=== PATIENT | female | born 1955 | race Caucasian/White ===

== ENCOUNTER → 2019-08-16 | Outpatient (CLI) | payer BC ==
[~2019-08-16] VITALS: Ht 157 cm; Wt 110.0 kg
[~2019-08-16] MED LIST: CATHETER FLUSH 10 ML SYR IV PRN; REGADENOSON 0.4 MG/5 ML SYR (LEXISCAN) IV ONE; meTOprolol 5 MG/5 ML (LOPRESSOR) VIAL IV ONE; meTOprolol 5 MG/5 ML (LOPRESSOR) VIAL ONE
[2019-08-16 12:57] VITALS: BP 123/98
[2019-08-16 13:01] VITALS: BP 128/86
--- NOTE | 2019-08-16 21:40 | STRESS TEST ---
DATE OF SERVICE: 08/16/2019 LEXISCAN MYOVIEW STRESS TEST REFERRING PHYSICIAN: Dr. Garima Norris. Baseline heart rate is 95, baseline blood pressure 143/93. Baseline EKG is atrial fibrillation with no ischemic changes. In summary, the patient was injected with 10.05 mCi of technetium-99 Myoview and the resting images were obtained. Then, the patient received 0.4 mg of Lexiscan followed by 30.1 mCi of technetium-99 Myoview. Throughout the test, there were no EKG changes. The resting and stress images were reviewed and compared in the short axis, horizontal long axis, and vertical long axis views. Review of the images showed breast attenuation with decreased uptake involving the mid to apical anterior wall and anterior septum. SSS is 8, SDS 8, TID value 1.01. On the gated images, the left ventricle appeared to be normal size with normal contractility. Calculated ejection fraction is 63%, underlying atrial fibrillation affecting the gated images CONCLUSION: 1. The patient tolerated Lexiscan well. 2. Baseline atrial fibrillation persisted throughout test. 3. Nondiagnostic EKG changes with Lexiscan injection. 4. Breast attenuation with mild decreased uptake at the mid to apical anterior wall, anterior septum with mild reversibility. 5. Normal left ventricular size with normal contractility. Calculated ejection fraction 63%, gated images are unreliable due to underlying atrial fibrillation. Job ID: [id number] DocumentID: [id number] Dictated Date: 08/16/2019 16:20:40 [employer] Date: 08/16/2019 21:39:48 Dictated By: YRN MEDINA MD
== END ==
LOC: CARD 10:57
PROVIDERS: ATTEND Physician Assistant
DX: E78.2 Mixed hyperlipidemia (principal); E66.01 Morbid (severe) obesity due to excess calories; R00.2 Palpitations; Z82.3 Family history of stroke; Z82.49 Family history of ischemic heart disease and other diseases of the circulatory system
CPT/HCPCS: 78452; 93017; 93306

== ENCOUNTER 2019-08-23 10:33 | Day surgery (SDC) | payer BC ==
[~2019-08-23] VITALS: Ht 154.9 cm; Wt 109.0 kg
[2019-08-23] VITALS (9 sets, daily range): BP systolic 111–139; BP diastolic 74–93
[2019-08-23] MEDS ORDERED: HEParin (CATH LAB) 2,000 ML IV ONE (10:42)
[2019-08-23] MEDS ORDERED: NS IV 1000 ML 1,000 ML ONE (10:42)
[2019-08-23] MEDS ORDERED: LIDOCAINE 1% INJ 20 ML 20 ML VIAL ONE (10:42)
[2019-08-23] MEDS ORDERED: NS IV 1000 ML 1,000 ML IV SCH ×2 (10:45→15:24)
--- NOTE | 2019-08-23 11:01 | Diagnostic Imaging Report ---
INDICATION: Pre-heart catheterization. Time of exam 10:54 AM The heart size is normal. Lungs are clear. The pulmonary vascularity is normal. No infiltrate, effusion or pneumothorax is detected. IMPRESSION: No acute cardiopulmonary process is detected. Dictated by: Dictated on workstation # [id number]
[2019-08-23 11:07] LABS: HEMOGLOBIN 15.7 G/DL (11.5-16.0); MEAN PLATELET VOLUME 10.8 FL (7.4-10.4); RED CELL DISTRIBUTION WIDTH 13.4 % (10.0-14.5); WHITE BLOOD COUNT 10.7 10^3/uL (4.3-11.0)
[2019-08-23 11:08] LABS: BILIRUBIN,URINE NEGATIVE (NEGATIVE); CLARITY,URINE SLIGHTLY CLOUDY; COLOR,URINE YELLOW; GLUCOSE, URINE (UA) NEGATIVE (NEGATIVE); KETONES,URINE NEGATIVE (NEGATIVE); LEUKOCYTE ESTERASE ,URINE 1+ (NEGATIVE); NITRITE,URINE NEGATIVE (NEGATIVE); PH,URINE 6 (5-9); PROTEIN,URINE 2+ (NEGATIVE)
[2019-08-23 11:17] LABS: BACTERIA,URINE MODERATE /HPF
[2019-08-23] MEDS ORDERED: APIX5TAB PO (11:18)
[2019-08-23] MEDS ORDERED: LEVO125T PO (11:18)
[2019-08-23] MEDS ORDERED: SIMV20TA3 PO (11:18)
[2019-08-23] MEDS ORDERED: FURO-125 PO (11:18)
[2019-08-23] MEDS ORDERED: METO-370 PO (11:18)
[2019-08-23] MEDS ORDERED: TRIA1TAB3 PO (11:18)
[2019-08-23] MEDS ORDERED: METF-397 PO (11:18)
[2019-08-23] MEDS ORDERED: LISI-556 PO (11:18)
[2019-08-23] MEDS ORDERED: OMEG1CAP58 PO (11:18)
[2019-08-23 11:20] LABS: PROTHROMBIN TIME PATIENT 13.3 SEC (12.2-14.7)
[2019-08-23] MEDS ORDERED: ACET-77 PO (11:23)
[2019-08-23 11:26] LABS: ALBUMIN 4.3 GM/DL (3.2-4.5); BILIRUBIN,TOTAL 0.9 MG/DL (0.1-1.0); CREATININE SERUM 1.01 MG/DL (0.60-1.30); POTASSIUM 3.9 MMOL/L (3.6-5.0); TOTAL PROTEIN 8.2 GM/DL (6.4-8.2)
--- NOTE | 2019-08-23 11:29 | NUR ---
SPOKE WITH THE PT (SHE HAD HER HOME MEDS) TO COMPLETE THE MED REC. PT WAS ABLE TO TELL ME ALL HER MEDS WELL HOW/WHEN SHE TAKES THEM THE FOLLOWING ARE FILL DATES ACCORDING TO [facility]: 05-29-2019 METFORMIN #90/90DS 05-29-2019 SIMVASTATIN #90/90DS 07-26-2019 HCTZ/TRIAMTERENE #30/30DS 07-26-2019 LEVOTHYROXINE #30/ 30DS 07-26-2019 LISINOPRIL #30/30DS 08-11-2019 METOPROLOL #90/90DS 08-11-2019 ELIQUIS #60/30DS 08-18-2019 FUROSEMIDE #30/30DS OTC: FISH OIL APAP
[2019-08-23] MEDS ORDERED: MIDAZOLAM 5 MG/5 ML (VERSED) VIAL ONE (14:41)
[2019-08-23] MEDS ORDERED: HEParin 1000 UNIT/ML (10ML VIAL) FOR BOLUS ONE (14:41)
[2019-08-23] MEDS ORDERED: fentaNYL INJECTION 100 MCG/2 ML AMP ONE (14:41)
--- NOTE | 2019-08-23 15:24 | Cardiac Procedure Note-CS/ASA ---
Pre-Procedure Note Pre-Op Procedure Note H&P Reviewed The H&P was reviewed, patient examined and no changes noted. Date H&P Reviewed: Aug 23, 2019 Time H&P Reviewed: 14:00 Conscious Sedation Pre-Proced Time 14:00 ASA Score 3 For ASA 3 and 4: Consider anesthesia and medical clearance. Also, for patients with a history of failed moderate sedation consider anesthesia. Airway Lungs Heart ASA score ASA 1: a normal healthy patient ASA 2: a patient with a mild systemic disease (mid diabetes, controlled hypertension, obesity x ASA 3: a patient with a severe systemic disease that limits activity (angina, COPD, prior Myocardial infarction) ASA 4: a patient with an incapacitating disease that is a constant threat to life (CHF, renal failure) ASA 5: a moribund patient not expected to survive 24 hrs. (ruptured aneurysm) ASA 6: a declared brain- patient whose organs are being harvested. For emergent operations, add the letter E after the classification Mallampati Classification Grade 3 Sedation Plan Analgesia, Amnesia, Plan communicated to team members, Discussed options with patient/fam, Discussed risks with patient/fam The patient is an appropriate candidate to undergo the planned procedure, sedation, and anesthesia. The patient immediately re-assessed prior to indication. YRN MEDINA MD Aug 23, 2019 3:24 pm POS
--- NOTE | 2019-08-23 15:26 | Discharge Inst-Post CATH ---
Discharge Inst-CATH/EP Problems Reviewed?: Yes Post Cardiac Cath/EP D/C Inst Follow Up/Plan Hold metformin for [address] MEDINA's office in 2-4 weeks <b>CARDIAC CATH/EP PROCEDURE DISCHARGE INSTRUCTIONS</b> ACTIVITY * Go Home directly and rest. * Limit activity of the leg (or wrist if it was used) for 7 days including aerobics, swimming, jogging, bicycling, etc. * Restrict stair-climbing for 7 days if possible, if not, climb up with your non-cath leg, then bring together on the same step. * Avoid lifting, pushing, pulling or excessive movement of the affected extremity for 7 days. * Customary sexual activity may be resumed after 2 days-use caution not to use a position that strains or causes pain to the affected extremity. * No driving for 24 hours. * NO SMOKING. * Avoid straining for bowel movements for 7 days. * Gentle walking on level ground is allowed. * Returning to work will depend on the type of procedure and the results. Your doctor will discuss this with you. CALL YOUR DOCTOR FOR ANY OF THE FOLLOWING: *If bleeding from the puncture site occurs- Apply gentle pressure to site with clean cloth and call your doctor or EMS. * If a knot or lump forms under the skin, increases in size, or causes pain. * If bruising appears to be worsening or moving further down your leg instead of disappearing. * Temperature above 101 F. CARE OF YOUR GROIN INCISION; * Bruising or purple discoloration of the skin near the puncture site is common. * You may shower only, no bathtub bathing for 5 days. Be careful to avoid slipping as your leg may feel stiff. * If a closure device was used on your femoral artery, please see the attached guide regarding care of the device and your leg. * Leave dressing on FOR 24 hours. CARE OF YOUR WRIST INCISION; * Bruising or purple discoloration of the skin near the puncture site is common. * You may shower. * DO NOT submerge wrist. * Leave dressing on FOR 24 hours. YRN MEDINA MD Aug 23, 2019 3:26 pm POS
[2019-08-23] MEDS ORDERED: PATIENT MAY USE OWN MEDS, ALL PO SCH (15:30)
--- NOTE | 2019-08-23 15:32 | Cardiac Cath Report ---
Cardiac Cath Report Physician (s)/Thaw Shed Heater Tender (s) Physician YRN MEDINA MD Pre-Procedure Diagnosis Pre-Procedure Diagnosis: coronary artery disease Post-Procedure Note Procedure Start Date: Aug 23, 2019 Name of Procedure: Left heart catheterization Left ventriculogram Findings/Procedure Note PROCEDURE NOTE: 64-year-old lady with history of paroxysmal atrial fibrillation, hypertension hyperlipidemia, had an abnormal stress test, scheduled for cardiac catheterization possible PTCA. After explaining the procedure to the patient, all pros and cons were explained, all questions were answered. The patient signed the consent and then she was placed on the cardiac catheterization laboratory. Groin was prepped SL fashion local anesthesia was used. Sheath placed in the right femoral artery. Sera right and left catheter were used to access the coronary system. Sera right was advanced to the LV cavity, pressure was measured, LV gram was done. At the end of the procedure the sheath was removed. Closure device was used FINDINGS: Hemodynamics LV 118/12, end-diastolic pressure of 12 Aorta 112/65 mean of 86 ANATOMY: Left Main is free of obstructive disease Left Anterior Descending has mild disease nonobstructive disease Left Circumflex is dominant artery with 50-60 percent stenosis distally, nonobstructive disease Right Coronary Artery is nondominant artery small artery LV Gram was done showing normal left ventricular size and systolic pressure estimated ejection fraction 50 percent CONCLUSION: 1. [id number] coronary artery disease especially at the distal circumflex artery that is a dominant artery nonobstructive disease 2. Normal left ventricle size and systolic function estimated ejection fraction 50 percent DISCUSSION AND RECOMMENDATION: Continue with medical therapy, no intervention is recommended Anesthesia Type: Conscious Sedation Estimated blood loss (mL): 15 ml Contrast Amount: 35 ml Total Radiation Dose: 433 mGy Post-Procedure Diagnosis Post-operative diagnosis: Coronary artery disease Paroxysmal atrial fibrillation Hypertension Hyperlipidemia Diabetes mellitus YRN MEDINA MD Aug 23, 2019 3:32 pm POS
--- NOTE | 2019-08-23 19:15 | NUR ---
PT AMBULATED IN HALLS, PETRONA WELL
--- NOTE | 2019-08-23 20:03 | NUR ---
IV REMOVED AND PT HOME PER PRIVATE WEHICHLE. RIGHT GROIN D/I
== END 2019-08-23 19:51 | disposition home or self-care (01) ==
LOC: CATH 10:33 → CSD 15:55 → CATH 19:51
PROVIDERS: ATTEND Internal Medicine Cardiovascular Disease
DX: I25.10 Atherosclerotic heart disease of native coronary artery without angina pectoris (principal); I48.0 Paroxysmal atrial fibrillation; I10 Essential (primary) hypertension; I63.9 Cerebral infarction, unspecified; E78.5 Hyperlipidemia, unspecified; E11.9 Type 2 diabetes mellitus without complications; E66.01 Morbid (severe) obesity due to excess calories; Z68.42 Body mass index [BMI] 45.0-49.9, adult; Z88.8 Allergy status to other drugs, medicaments and biological substances; Z79.01 Long term (current) use of anticoagulants; Z79.899 Other long term (current) drug therapy; Z79.84 Long term (current) use of oral hypoglycemic drugs; Z87.891 Personal history of nicotine dependence; Z82.49 Family history of ischemic heart disease and other diseases of the circulatory system
CPT/HCPCS: 36415; 71045; 80053; 80061; 81000; 85027; 85610; 85730; 87081; 87088; 93458

== ENCOUNTER 2019-10-05 19:49 | Outpatient (CLI) | payer BC ==
[~2019-10-05 19:49] MED LIST changes: +ACET-77 PO; +APIX5TAB PO; -CATHETER FLUSH 10 ML SYR IV PRN; +FURO-125 PO; +LEVO125T PO; +LISI-556 PO; +METF-397 PO; +METO-370 PO; +OMEG1CAP58 PO; -REGADENOSON 0.4 MG/5 ML SYR (LEXISCAN) IV ONE; +SIMV20TA3 PO; +TRIA1TAB3 PO; -meTOprolol 5 MG/5 ML (LOPRESSOR) VIAL IV ONE; -meTOprolol 5 MG/5 ML (LOPRESSOR) VIAL ONE
== END 2019-10-06 06:23 | disposition home or self-care (01) ==
LOC: SLEEP 19:49
PROVIDERS: ATTEND Internal Medicine Cardiovascular Disease
DX: G47.33 Obstructive sleep apnea (adult) (pediatric) (principal); I49.9 Cardiac arrhythmia, unspecified
CPT/HCPCS: 95811

== ENCOUNTER 2019-10-11 08:09 | Day surgery (SDC) | payer BC ==
[2019-10-11] VITALS (11 sets, daily range): BP systolic 112–142; BP diastolic 61–99
[~2019-10-11] VITALS: Ht 155 cm; Wt 107.0 kg
[2019-10-11] MEDS ORDERED: NS IV 1000 ML 1,000 ML IV SCH (09:19)
[2019-10-11] MEDS ORDERED: LIDOCAINE 2% VISCOUS 15 ML UDC ONE (09:21)
[2019-10-11] MEDS ORDERED: NS IV 1000 ML 1,000 ML ONE (09:21)
[2019-10-11 09:45] LABS: HEMOGLOBIN 15.1 G/DL (11.5-16.0); MEAN PLATELET VOLUME 10.6 FL (7.4-10.4); RED CELL DISTRIBUTION WIDTH 13.5 % (10.0-14.5); WHITE BLOOD COUNT 9.8 10^3/uL (4.3-11.0)
[2019-10-11] MEDS ORDERED: proPOfol 200 MG/20 ML (DIPRIVAN) VIAL IV ONE (09:50)
[2019-10-11] MEDS ORDERED: MIDAZOLAM 2 MG/2 ML (VERSED) VIAL ONE (09:50)
--- NOTE | 2019-10-11 09:50 | Diagnostic Imaging Report ---
INDICATION: History of atrial fibrillation. Preprocedural evaluation. COMPARISON: 08/23/2019 FINDINGS: Single frontal view of the chest demonstrates normal heart size and pulmonary vascularity. The lungs are well aerated and clear. No large pleural effusion or pneumothorax is seen. The visualized osseous structures show no acute abnormalities. IMPRESSION: 1. No acute cardiopulmonary process. Dictated by: Dictated on workstation # [id number]
[2019-10-11 09:59] LABS: INR 1.1 (0.8-1.4)
[2019-10-11] MEDS ORDERED: METO-395 PO (10:03)
[2019-10-11] MEDS ORDERED: METF-397 PO (10:03)
[2019-10-11 10:05] LABS: ALANINE AMINOTRANSFERASE 17 U/L (0-55); ALBUMIN 4.2 GM/DL (3.2-4.5); ALKALINE PHOSPHATASE 85 U/L (40-136); BILIRUBIN,TOTAL 0.8 MG/DL (0.1-1.0); BUN/CREATININE RATIO 20; CALCIUM 9.8 MG/DL (8.5-10.1); CARBON DIOXIDE 24 MMOL/L (21-32); CHLORIDE 105 MMOL/L (98-107); CREATININE SERUM 0.91 MG/DL (0.60-1.30); GFR ESTIMATED > 60; GLUCOSE 110 MG/DL (70-105); SODIUM 141 MMOL/L (135-145); TOTAL PROTEIN 7.7 GM/DL (6.4-8.2)
--- NOTE | 2019-10-11 10:52 | Cardiac Procedure Note-CS/ASA ---
Pre-Procedure Note Pre-Op Procedure Note H&P Reviewed The H&P was reviewed, patient examined and no changes noted. Date H&P Reviewed: Oct 11, 2019 Time H&P Reviewed: 10:30 Conscious Sedation Pre-Proced Time 10:30 ASA Score 3 For ASA 3 and 4: Consider anesthesia and medical clearance. Also, for patients with a history of failed moderate sedation consider anesthesia. Airway Lungs Heart ASA score ASA 1: a normal healthy patient ASA 2: a patient with a mild systemic disease (mid diabetes, controlled hypertension, obesity x ASA 3: a patient with a severe systemic disease that limits activity (angina, COPD, prior Myocardial infarction) ASA 4: a patient with an incapacitating disease that is a constant threat to life (CHF, renal failure) ASA 5: a moribund patient not expected to survive 24 hrs. (ruptured aneurysm) ASA 6: a declared brain- patient whose organs are being harvested. For emergent operations, add the letter E after the classification Mallampati Classification Grade 3 Sedation Plan Analgesia, Amnesia, Plan communicated to team members, Discussed options with patient/fam, Discussed risks with patient/fam The patient is an appropriate candidate to undergo the planned procedure, sedation, and anesthesia. The patient immediately re-assessed prior to indication. YRN MEDINA MD Oct 11, 2019 10:52
--- NOTE | 2019-10-11 10:53 | Cardioversion ---
Cardioversion PROCEDURE PHYSICIAN: Yrn Schmidt DATE OF PROCEDURE: 10/11/19 DIRECT EXTERNAL ELECTRICAL CARDIOVERSION: Indications: Atrial Fibrillation with rapid ventricular rate Preoperative diagnoses: Atrial Fibrillation with rapid ventricular rate Postoperative diagnosis: Sinus rhythm, Successful Electrical Cardioversion Anesthesia: By Anesthesia services Complications: None Specimen: None Contrast: 0 Flouroscopy: none Procedure Details: The patient was brought the microbiology lab analyst after informed consent was taken, all the risks and complications were explained including the risk of stroke. Electrical cardioversion was carried out with anesthesia support with propofol. 200 joules of synchronized shock was delivered through external patches which promptly restored sinus rhythm. The patient tolerated the procedure well. Conclusions: Successful JODY with electrical cardioversion with no complication Final Diagnosis: Paroxysmal atrial fibrillation Tachycardia Hypertension Hyperlipidemia YRN SCHMIDT MD Oct 11, 2019 10:53
--- NOTE | 2019-10-11 10:55 | NUR ---
SPOKE WITH THE PT (SHE HAD BOTTLES) TO COMPLETE THE MED REC. PT WAS ABLE TO TELL ME WHEN/HOW SHE TAKES EACH MED. THE FOLLOWING ARE FILL DATES: 09-01-2019 SIMVASTATIN #90/90DS 09-01-2019 TRIAMTERENE /HCTZ #30/30S 09-01-2019 METFORMIN #90/90DS 09-11-2019 ELIQUIS #60/30DS 09-12-2019 METOPROLOL #90/90DS 09-18-2019 FUROSEMIDE #30/30DS 09-18-2019 LISINOPRIL #30/30DS 09-29-2019 LEVOTHYROXINE #30/30DS OTC: TYLENOL OMEGA 3
[2019-10-11] MEDS ORDERED: APIXABAN 5 MG (ELIQUIS) TABLET PO ONE (11:00)
[2019-10-11] MEDS ORDERED: DRON400T2 PO (11:13)
[2019-10-11] MEDS ORDERED: DRONEDARONE TABLET 400 MG TABLET PO ONE (11:15)
[2019-10-11] MEDS ORDERED: LIDOCAINE 2% VISCOUS 15 ML UDC PO ONE (11:30)
[2019-10-11] MEDS ORDERED: ATOR10TA PO (11:31)
--- NOTE | 2019-10-11 13:14 | Anesthesia-General Post-Op ---
MAC Patient Condition Mental Status/LOC: Same as Preop Cardiovascular: Satisfactory Nausea/Vomiting: Absent Respiratory: Satisfactory Pain: Controlled Complications: Absent Post Op Complications Complications None Follow Up Care/Instructions Patient Instructions None needed. Anesthesiology Discharge Order Discharge Order Patient is doing well, no complaints, stable vital signs, no apparent adverse anesthesia problems. No complications reported per nursing. MAYA NAJERA CRNA Oct 11, 2019 13:14
[2019-10-11] MEDS ORDERED: APIXABAN 5 MG (ELIQUIS) TABLET PO SCH (21:00)
[2019-10-11] MEDS ORDERED: DRONEDARONE TABLET 400 MG TABLET PO SCH (21:00)
[2019-10-12] MEDS ORDERED: meTOprolol SUCCINATE 100 MG (TOPROL XL) TAB PO SCH (09:00)
== END 2019-10-11 13:00 | disposition home or self-care (01) ==
LOC: CATH 08:09
PROVIDERS: ATTEND Internal Medicine Cardiovascular Disease
DX: I48.0 Paroxysmal atrial fibrillation (principal); I25.10 Atherosclerotic heart disease of native coronary artery without angina pectoris; E78.2 Mixed hyperlipidemia; R00.2 Palpitations; I10 Essential (primary) hypertension; E11.9 Type 2 diabetes mellitus without complications; E66.9 Obesity, unspecified; G47.33 Obstructive sleep apnea (adult) (pediatric); K21.9 Gastro-esophageal reflux disease without esophagitis; Z82.49 Family history of ischemic heart disease and other diseases of the circulatory system; I65.23 Occlusion and stenosis of bilateral carotid arteries; Z68.41 Body mass index [BMI] 40.0-44.9, adult; Z87.891 Personal history of nicotine dependence
CPT/HCPCS: 36415; 71045; 80053; 85027; 85610; 85730; 87081; 92960; 93005; 93312; 93320; 93325

== ENCOUNTER → 2022-10-09 | Day surgery (SDC) | payer MEDICARE, OTHER ==
[~2022-10-09] MED LIST changes: -ACET-77 PO; +ACET-78 PO; +ATOR10TA PO; +DRON400T6 PO; -LISI-556 PO; +LISI5TAB20 PO; -METO-370 PO; +METO50TA7 PO; +MTP100TCR PO; +NS IV 1000 ML 0 ML ONE; +NS IV 1000 ML 1,000 ML IV SCH; +SIMV20TA26 PO; -SIMV20TA3 PO
== END ==
LOC: CATH 06:49
PROVIDERS: ATTEND Internal Medicine Cardiovascular Disease
DX: I48.0 Paroxysmal atrial fibrillation (principal); I25.10 Atherosclerotic heart disease of native coronary artery without angina pectoris; Z79.01 Long term (current) use of anticoagulants; I10 Essential (primary) hypertension; E11.9 Type 2 diabetes mellitus without complications; I65.23 Occlusion and stenosis of bilateral carotid arteries; E66.9 Obesity, unspecified; Z68.41 Body mass index [BMI] 40.0-44.9, adult; G47.33 Obstructive sleep apnea (adult) (pediatric); E78.2 Mixed hyperlipidemia; Z79.899 Other long term (current) drug therapy
CPT/HCPCS: 93005

== ENCOUNTER → 2022-10-14 | Outpatient (CLI) | payer MEDICARE, OTHER ==
[~2022-10-14] MED LIST changes: -NS IV 1000 ML 0 ML ONE; -NS IV 1000 ML 1,000 ML IV SCH; +REGADENOSON 0.4 MG/5 ML SYR (LEXISCAN) IV ONE
[2022-10-14] MEDS: CATHETER FLUSH 10 ML SYR IVP PRN ×2 (08:21→10:13)
[2022-10-14 10:06] VITALS: BP 126/82
--- NOTE | 2022-10-14 12:08 | Cardiology Stress Test Report ---
Stress Test Report Date of Procedure/Referring: Date of Procedure: Oct 14, 2022 [facility] Admitting Physician Admitting Physician: Attending Physician: Yrn Schmidt MD Baseline Heart Rate: 60 Baseline Blood Pressure: Blood Pressure Systolic: 126 Blood Pressure Diastolic: 82 Baseline Vitals Vital Signs Date Time Temp Pulse Resp B/P (MAP) Pulse Ox O2 Delivery O2 Flow Rate FiO2 10/14/22 10:06 62 20 126/82 (97) 98 Room Air Baseline EKG: Baseline EKG: NSR Summary After explaining the procedure to the patient, she signed a consent and then brought to the stress nuclear laboratory. Patient received 0.4 mg Lexiscan for stress test, ECG, heart rate and blood pressure were monitored continuously. Resting and stress dose of radio tracer were injected, imaging was acquired and reviewed in short axis, horizontal long axis and vertical long axis views. SSS: 4 SDS: 1 EF: 80 1. Patient tolerated Lexiscan well 2. Breast attenuation with fixed defect involving the mid to apical anterior wall with no significant ischemia or infarction on SPECT images 3. Normal left ventricular size with normal contractility, ejection fraction 80% Copy Copies To 1: [facility]/ YRN SCHMIDT MD Oct 14, 2022 12:08
== END ==
LOC: CARD 08:00
PROVIDERS: ATTEND Internal Medicine Cardiovascular Disease
DX: I10 Essential (primary) hypertension (principal); I25.10 Atherosclerotic heart disease of native coronary artery without angina pectoris
CPT/HCPCS: 78452; 93017; A9502